=== PATIENT | female | born 1940 | race Caucasian/White ===

== ENCOUNTER → 2018-04-16 15:59 | Outpatient (CLI) | payer MEDICARE, SELFPAY | PROVIDERS: Visit Provider Dermatology | DX: I87.2 Venous insufficiency (chronic) (peripheral) (principal) | CPT/HCPCS: 87070; 87077; 87186; 87205 ==

== ENCOUNTER 2020-10-13 16:12 | Outpatient (RCR) | payer MEDICARE, SELFPAY ==
[2020-10-13] MEDS: COVID-19 VACC, MRNA(PFIZER)/PF 30 MCG/0.3 ML SYRINGE IM (14:27)
[2020-11-03] MEDS: COVID-19 VACC, MRNA(PFIZER)/PF 30 MCG/0.3 ML SYRINGE IM (14:20)
== END 2021-01-17 23:59 ==
LOC: IMMUN 16:12
PROVIDERS: Referring Provider Family Medicine; Visit Provider Family Medicine
DX: Z23 Encounter for immunization (principal)
CPT/HCPCS: 0001A; 0002A; 91300